=== PATIENT | male | born 1985 | race Caucasian/White ===

== ENCOUNTER 2023-04-03 17:22 | Emergency (ER) | payer OTHER ==
[~2023-04-03] VITALS: Ht 165.1 cm; Wt 76.0 kg
[2023-04-03 21:20] VITALS: BP 129/68; PULSE 69; RESP 16; TEMP 98.3
== END 2023-04-03 22:09 | disposition home or self-care (01) ==
LOC: EMS 17:24
DX: S80.11XA Contusion of right lower leg, initial encounter (principal); X58.XXXA Exposure to other specified factors, initial encounter; Y93.66 Activity, soccer; Y92.89 Other specified places as the place of occurrence of the external cause; Y99.8 Other external cause status
CPT/HCPCS: 99283